=== PATIENT | female | born 1945 | race Two or more races ===

== ENCOUNTER 2018-05-12 11:04 | Inpatient (IN) | payer MEDICAID ==
[~2018-05-12] VITALS: Ht 152.4 cm; Wt 63.0 kg
[~2018-05-12 11:04] MED LIST: FERR325T23 PO; NEPVIT PO; PEPJ2 IV
[2018-05-12 13:23] LABS: HEMATOCRIT. 42.4 % (36.0-48.0); HEMOGLOBIN. 14.4 g/dL (12.0-16.0); MEAN CORPUSCULAR HEMOGLOBIN 29.1 pg (28.0-32.0); MEAN CORPUSCULAR VOLUME 85.5 fL (81.0-99.0); MEAN PLATELET VOLUME 10.3 fl (7.4-10.4); PLATELET 303 x1000/uL (130-400); RED BLOOD CELL COUNT 4.96 mill/uL (4.2-5.4)
[2018-05-12 13:24] LABS: CHLORIDE 97 mEq/L (98-107)
[2018-05-12 13:25] LABS: PROTHROMBIN TIME 10.3 sec (9.1-11.1)
[2018-05-12 13:55] LABS: PLATELET ESTIMATE NORMAL
[2018-05-12 14:04] LABS: CLARITY URINE CLEAR (CLEAR); COLOR URINE YELLOW (YELLOW); KETONES URINE TRACE (NEGATIVE); LEUKOCYTE ESTERASE URINE NEGATIVE (NEGATIVE); NITRITE URINE NEGATIVE (NEGATIVE); OCCULT BLOOD URINE TRACE (NEGATIVE); PROTEIN URINE 3+ (NEGATIVE); SPECIFIC GRAVITY URINE 1.017 (1.005-1.030); UROBILINOGEN URINE 0.2 E.U./dL (0.2-1.0)
[2018-05-12] MEDS ORDERED: PIPERACILLIN/TAZOBACTAM 3.375GM/50ML PREMIX IV ONE (14:15)
[2018-05-12] MEDS ORDERED: MAGNESIUM SULFATE 2 GM in DEXTROSE 5% WATER 50 ML IV NR (14:20)
[2018-05-12] MEDS ORDERED: IOHEXOL-300 100 ML BOTTLE ONE (14:26)
[2018-05-12] MEDS ORDERED: HYDRALAZINE 20MG/ML VIAL IV ONE (16:45)
[2018-05-12] MEDS ORDERED: BLOOD SUGAR DIAGNOSTIC STRIP TEST SCH (17:00)
[2018-05-12] MEDS ORDERED: ONDANSETRON HCL 4MG/2ML VIAL IV PRN (17:00)
[2018-05-12] MEDS ORDERED: DEXTROSE 50% WATER 50ML SYRINGE IV PRN (17:00)
[2018-05-12] MEDS ORDERED: HYDRALAZINE 20MG/ML VIAL IV PRN (17:00)
[2018-05-12] MEDS ORDERED: MORPHINE SULFATE 4 MG/ML CPJ (NOT FOR IM USE) IV PRN (17:00)
[2018-05-12 18:00] VITALS: BP 144/59
[2018-05-12] MEDS ORDERED: INSULIN LISPRO 100 UNITS/ML SUBCUT SCH (18:18)
[2018-05-12] MEDS ORDERED: LABETALOL 5MG/ML SYR 20 MG/4 ML SYRINGE IV NR (19:00)
[2018-05-12] MEDS ORDERED: LEVOFLOXACIN 500MG PREMIX 100 ML IV SCH (20:00)
[2018-05-12 20:12] VITALS: BP 152/75
[2018-05-12] MEDS: BLOOD SUGAR DIAGNOSTIC STRIP TEST SCH (21:00)
[2018-05-12] MEDS: SODIUM CHLORIDE 0.45% 1,000 ML IV SCH (22:19)
[2018-05-12] MEDS: INSULIN LISPRO 100 UNITS/ML SUBCUT SCH (22:21)
[2018-05-13] VITALS: BP 160/76
[2018-05-13] MEDS: SODIUM CHLORIDE 0.45% 1,000 ML IV SCH ×3 (03:00→15:42)
[2018-05-13 04:00] VITALS: BP 143/56
[2018-05-13 06:55] LABS: BASOPHILS % 0.3 % (0.0-2.0); EOSINOPHILS % 0.7 % (0.0-5.0); HEMOGLOBIN. 14.8 g/dL (12.0-16.0); LYMPHOCYTES % 12.1 % (20.0-50.0); MEAN CORPUSCULAR HEMOGLOBIN 29.7 pg (28.0-32.0); MEAN CORPUSCULAR VOLUME 86.6 fL (81.0-99.0); MEAN PLATELET VOLUME 10.4 fl (7.4-10.4); MONOCYTES % 9.5 % (2.0-8.0); NEUTROPHILS % 77.4 % (40.0-76.0); PLATELET 297 x1000/uL (130-400); RED BLOOD CELL COUNT 4.96 mill/uL (4.2-5.4)
[2018-05-13] MEDS: BLOOD SUGAR DIAGNOSTIC STRIP TEST SCH ×4 (06:57→20:52)
[2018-05-13 07:13] LABS: CHLORIDE 94 mEq/L (98-107)
[2018-05-13 07:51] VITALS: BP 149/77
[2018-05-13] MEDS ORDERED: ATOR10TA69 MT (08:04)
[2018-05-13] MEDS ORDERED: ASPI-1158 MT (08:04)
[2018-05-13] MEDS ORDERED: ISOS30TA6 MT (08:04)
[2018-05-13] MEDS ORDERED: LINA5TAB MT (08:04)
[2018-05-13] MEDS ORDERED: CARV6.2548 MT (08:04)
[2018-05-13] MEDS ORDERED: NEPVIT MT (08:04)
[2018-05-13] MEDS: INSULIN LISPRO 100 UNITS/ML SUBCUT SCH ×4 (08:14→20:52)
[2018-05-13] MEDS: AMLODIPINE 10MG TABLET PO SCH (11:46)
[2018-05-13 12:00] VITALS: BP 166/71
[2018-05-13] MEDS ORDERED: INSULIN GLARGINE UD 100 UNITS/ML SYR SUBCUT NR (12:30)
[2018-05-13] MEDS: LEVOFLOXACIN 250MG PREMIX 50 ML IV SCH (15:42)
[2018-05-13 20:00] VITALS: BP 129/59
[2018-05-14] VITALS (7 sets, daily range): BP systolic 101–128; BP diastolic 40–56
[2018-05-14] MEDS: SODIUM CHLORIDE 0.45% 1,000 ML IV SCH ×3 (01:21→22:25)
[2018-05-14] MEDS: BLOOD SUGAR DIAGNOSTIC STRIP TEST SCH ×4 (06:22→21:00)
[2018-05-14 06:49] LABS: BASOPHILS % 0.2 % (0.0-2.0); EOSINOPHILS % 0.5 % (0.0-5.0); HEMATOCRIT. 35.2 % (36.0-48.0); HEMOGLOBIN. 12.2 g/dL (12.0-16.0); LYMPHOCYTES % 12.6 % (20.0-50.0); MEAN CORPUSCULAR HEMOGLOBIN 30.1 pg (28.0-32.0); MEAN CORPUSCULAR VOLUME 87.2 fL (81.0-99.0); MONOCYTES % 10.9 % (2.0-8.0); NEUTROPHILS % 75.8 % (40.0-76.0); PLATELET 229 x1000/uL (130-400); RED BLOOD CELL COUNT 4.04 mill/uL (4.2-5.4)
[2018-05-14 07:09] LABS: CHLORIDE 99 mEq/L (98-107)
[2018-05-14] MEDS: AMLODIPINE 10MG TABLET PO SCH (09:58)
[2018-05-14] MEDS: INSULIN GLARGINE UD 100 UNITS/ML SYR SUBCUT SCH (10:00)
[2018-05-14] MEDS: INSULIN LISPRO 100 UNITS/ML SUBCUT SCH ×4 (10:01→21:00)
[2018-05-14] MEDS ORDERED: HYDROCODONE/ACETAMINOPHEN 5/325MG TABLET PO PRN (12:45)
[2018-05-14] MEDS: LEVOFLOXACIN 250MG PREMIX 50 ML IV SCH (14:50)
[2018-05-14] MEDS: HYDROCODONE/ACETAMINOPHEN 5/325MG TABLET PO PRN ×2 (14:52→22:24)
[2018-05-14] MEDS: POTASSIUM CHLORIDE 20MEQ TABLET SR PO NR ×2 (17:40→17:41)
[2018-05-15] VITALS: BP 112/51
[2018-05-15 04:00] VITALS: BP 136/50
[2018-05-15] MEDS: SODIUM CHLORIDE 0.45% 1,000 ML IV SCH (05:00)
[2018-05-15] MEDS: INSULIN LISPRO 100 UNITS/ML SUBCUT SCH ×4 (06:38→20:54)
[2018-05-15] MEDS: BLOOD SUGAR DIAGNOSTIC STRIP TEST SCH ×4 (06:38→20:54)
[2018-05-15 07:28] LABS: BASOPHILS % 0.4 % (0.0-2.0); EOSINOPHILS % 2.5 % (0.0-5.0); HEMOGLOBIN. 11.5 g/dL (12.0-16.0); LYMPHOCYTES % 18.5 % (20.0-50.0); MEAN CORPUSCULAR HEMOGLOBIN 29.8 pg (28.0-32.0); MEAN CORPUSCULAR VOLUME 87.7 fL (81.0-99.0); MONOCYTES % 10.3 % (2.0-8.0); NEUTROPHILS % 68.3 % (40.0-76.0); RED BLOOD CELL COUNT 3.87 mill/uL (4.2-5.4); RED CELL DISTRIBUTION WIDTH 13.9 % (11.6-14.6)
[2018-05-15 08:00] VITALS: BP 119/48
[2018-05-15 08:10] LABS: CHLORIDE 107 mEq/L (98-107)
[2018-05-15] MEDS: AMLODIPINE 10MG TABLET PO SCH (09:18)
[2018-05-15] MEDS: INSULIN GLARGINE UD 100 UNITS/ML SYR SUBCUT SCH (09:33)
[2018-05-15] MEDS ORDERED: MORPHINE SULFATE 4 MG/ML CPJ (NOT FOR IM USE) IV PRN (10:15)
[2018-05-15] MEDS ORDERED: HYDROCODONE/ACETAMINOPHEN 5/325MG TABLET PO PRN ×2 (10:15)
[2018-05-15] MEDS ORDERED: BUPIVACAINE HCL 0.5% (5MG/ML) 50ML ONE (10:35)
[2018-05-15] MEDS ORDERED: SKIN ADHESIVE 0.7 GM EA TOP ONE (10:35)
[2018-05-15] MEDS ORDERED: FENTANYL CITRATE/PF 50MCG/ML 2ML VIAL ONE (11:03)
[2018-05-15] MEDS ORDERED: PROPOFOL 200MG/20ML VIAL IV ONE (11:03)
[2018-05-15] MEDS ORDERED: MIDAZOLAM HCL 2 MG/2 ML VIAL ONE (11:03)
[2018-05-15] MEDS ORDERED: ROCURONIUM BROMIDE 10MG/ML VIAL 5ML IV ONE (11:03)
[2018-05-15] MEDS ORDERED: LIDOCAINE HCL/PF 1% 10 MG/ML 5ML VIAL ONE (11:03)
[2018-05-15] MEDS ORDERED: SUCCINYLCHOLINE CHLORIDE 200MG/10ML VIAL IV ONE (11:03)
[2018-05-15] MEDS ORDERED: PHENYLEPHRINE HCL 10 MG/ML 1ML (IV VIAL) IV ONE (11:22)
[2018-05-15] MEDS ORDERED: EPHEDRINE SULFATE 50MG/ML VIAL ONE (11:26)
[2018-05-15] MEDS ORDERED: GLYCOPYRROLATE 0.2 MG/ML 2ML VIAL ONE (11:33)
[2018-05-15] MEDS ORDERED: ONDANSETRON HCL 4MG/2ML VIAL ONE (12:11)
[2018-05-15] MEDS ORDERED: METOCLOPRAMIDE HCL 10MG/2ML VIAL ONE (12:11)
[2018-05-15] MEDS ORDERED: SODIUM CHLORIDE 0.9% 1,000 ML IV ONE (12:28)
[2018-05-15] MEDS ORDERED: MEPERIDINE HCL/PF 25MG/ML CPJ IV PRN (12:30)
[2018-05-15] MEDS ORDERED: ONDANSETRON HCL 4MG/2ML VIAL IV PRN (12:30)
[2018-05-15] MEDS: HYDROMORPHONE HCL/PF 2MG/ML CPJ IV PRN ×4 (13:25→13:52)
[2018-05-15 13:52] LABS: MEAN PLATELET VOLUME 10.8 fl (7.4-10.4); PLATELET 179 x1000/uL (130-400)
[2018-05-15] MEDS ORDERED: LEVOFLOXACIN 250MG TABLET PO SCH (14:00)
[2018-05-15 16:00] VITALS: BP 96/56
[2018-05-15] MEDS: DEXT 5%/0.45% NACL KCL 20MEQ/L 1,000 ML IV SCH (18:04)
[2018-05-15] MEDS: MORPHINE SULFATE 4 MG/ML CPJ (NOT FOR IM USE) IV PRN (18:20)
[2018-05-15 20:15] VITALS: BP 138/52
[2018-05-15] MEDS: ACETAMINOPHEN 325MG TABLET PO PRN (20:53)
[2018-05-16] VITALS: BP 140/44
[2018-05-16] MEDS ORDERED: ONDANSETRON HCL 4MG/2ML VIAL IV PRN (01:00)
[2018-05-16] MEDS: ONDANSETRON 4MG ODT PO PRN ×2 (01:01→20:07)
[2018-05-16] MEDS: MORPHINE SULFATE 4 MG/ML CPJ (NOT FOR IM USE) IV PRN ×4 (01:01→20:07)
[2018-05-16 04:00] VITALS: BP 148/59
[2018-05-16] MEDS: DEXT 5%/0.45% NACL KCL 20MEQ/L 1,000 ML IV SCH ×3 (04:21→18:45)
[2018-05-16] MEDS: BLOOD SUGAR DIAGNOSTIC STRIP TEST SCH ×4 (06:22→20:47)
[2018-05-16 08:00] VITALS: BP 156/61
[2018-05-16] MEDS: AMLODIPINE 10MG TABLET PO SCH (08:53)
[2018-05-16] MEDS: INSULIN LISPRO 100 UNITS/ML SUBCUT SCH ×4 (09:02→20:47)
[2018-05-16 09:30] LABS: HEMATOCRIT. 31.8 % (36.0-48.0); HEMOGLOBIN. 10.5 g/dL (12.0-16.0); MEAN CORPUSCULAR HEMOGLOBIN 29.1 pg (28.0-32.0); MEAN CORPUSCULAR VOLUME 88.5 fL (81.0-99.0); MEAN PLATELET VOLUME 9.4 fl (7.4-10.4); PLATELET 263 x1000/uL (130-400); RED BLOOD CELL COUNT 3.59 mill/uL (4.2-5.4); RED CELL DISTRIBUTION WIDTH 13.9 % (11.6-14.6)
[2018-05-16] MEDS: INSULIN GLARGINE UD 100 UNITS/ML SYR SUBCUT SCH (10:17)
[2018-05-16] MEDS: METOCLOPRAMIDE HCL 10MG/2ML VIAL IV SCH ×2 (11:56→18:45)
[2018-05-16 12:00] VITALS: BP 131/68
[2018-05-16] MEDS: LEVOFLOXACIN 250MG PREMIX 50 ML IV SCH (13:47)
[2018-05-16] MEDS: PANTOPRAZOLE SODIUM 40 MG/VIAL IV SCH ×2 (13:55→20:06)
[2018-05-16 14:22] LABS: PLATELET ESTIMATE NORMAL
[2018-05-16 16:00] VITALS: BP 159/62
[2018-05-16] MEDS: ACETAMINOPHEN 325MG TABLET PO PRN (17:13)
[2018-05-16] MEDS ORDERED: ACETAMINOPHEN 650MG SUPP PR SCH (19:30)
[2018-05-16 20:00] VITALS: BP 149/41
[2018-05-16 20:57] LABS: HEMOGLOBIN 10.5 g/dL (12.0-16.0)
[2018-05-17] VITALS: BP 118/55
[2018-05-17] MEDS: DEXT 5%/0.45% NACL KCL 20MEQ/L 1,000 ML IV SCH ×3 (02:11→18:13)
[2018-05-17] MEDS: MORPHINE SULFATE 4 MG/ML CPJ (NOT FOR IM USE) IV PRN (02:13)
[2018-05-17] MEDS: METOCLOPRAMIDE HCL 10MG/2ML VIAL IV SCH ×3 (03:38→21:27)
[2018-05-17 04:00] VITALS: BP 124/50
[2018-05-17] MEDS: ONDANSETRON 4MG ODT PO PRN (06:38)
[2018-05-17] MEDS: BLOOD SUGAR DIAGNOSTIC STRIP TEST SCH ×4 (06:38→21:52)
[2018-05-17 07:04] LABS: HEMATOCRIT 30.3 % (36.0-48.0)
[2018-05-17] MEDS: INSULIN LISPRO 100 UNITS/ML SUBCUT SCH ×4 (07:50→21:00)
[2018-05-17 08:00] VITALS: BP 127/55
[2018-05-17] MEDS: PANTOPRAZOLE SODIUM 40 MG/VIAL IV SCH ×2 (09:48→21:27)
[2018-05-17] MEDS: AMLODIPINE 10MG TABLET PO SCH (09:49)
[2018-05-17] MEDS: INSULIN GLARGINE UD 100 UNITS/ML SYR SUBCUT SCH (10:00)
[2018-05-17 12:00] VITALS: BP 118/47
[2018-05-17] MEDS: SIMETHICONE 80MG TABLET CHEW PO SCH ×3 (15:40→21:27)
[2018-05-17] MEDS: LEVOFLOXACIN 250MG PREMIX 50 ML IV SCH (15:40)
[2018-05-17 16:00] VITALS: BP 152/50
[2018-05-17] MEDS: ACETAMINOPHEN 325MG TABLET PO PRN (16:58)
[2018-05-17 17:56] LABS: HEMATOCRIT 29.9 % (36.0-48.0); HEMOGLOBIN 10.1 g/dL (12.0-16.0)
[2018-05-17 20:06] VITALS: BP 114/54
[2018-05-17] MEDS ORDERED: IPRATROPIUM/ALBUTEROL 0.5-3(2.5)MG/3ML NEB HHN PRN (21:00)
[2018-05-18] VITALS: BP 116/58
[2018-05-18 04:00] VITALS: BP 146/60
[2018-05-18 05:09] LABS: CHLORIDE 105 mEq/L (98-107)
[2018-05-18] MEDS: METOCLOPRAMIDE HCL 10MG/2ML VIAL IV SCH ×3 (05:30→21:34)
[2018-05-18] MEDS: DEXT 5%/0.45% NACL KCL 20MEQ/L 1,000 ML IV SCH (05:33)
[2018-05-18 05:37] LABS: HEMATOCRIT. 28.3 % (36.0-48.0); HEMOGLOBIN. 9.6 g/dL (12.0-16.0); MEAN CORPUSCULAR HEMOGLOBIN 29.7 pg (28.0-32.0); MEAN CORPUSCULAR VOLUME 87.5 fL (81.0-99.0); PLATELET 222 x1000/uL (130-400); RED BLOOD CELL COUNT 3.23 mill/uL (4.2-5.4); RED CELL DISTRIBUTION WIDTH 13.8 % (11.6-14.6)
[2018-05-18] MEDS: BLOOD SUGAR DIAGNOSTIC STRIP TEST SCH ×4 (06:13→21:25)
[2018-05-18 08:00] VITALS: BP 156/67
[2018-05-18] MEDS: SIMETHICONE 80MG TABLET CHEW PO SCH ×4 (09:38→21:34)
[2018-05-18] MEDS: AMLODIPINE 10MG TABLET PO SCH (09:40)
[2018-05-18] MEDS: PANTOPRAZOLE SODIUM 40 MG/VIAL IV SCH ×2 (09:43→21:34)
[2018-05-18] MEDS: INSULIN LISPRO 100 UNITS/ML SUBCUT SCH ×4 (09:57→21:00)
[2018-05-18 12:00] VITALS: BP 156/51
[2018-05-18] MEDS: INSULIN GLARGINE UD 100 UNITS/ML SYR SUBCUT SCH (12:32)
[2018-05-18] MEDS ORDERED: GUAIFENESIN 200MG/10ML SUGAR FREE UDC PO PRN (14:45)
[2018-05-18] MEDS: LEVOFLOXACIN 250MG PREMIX 50 ML IV SCH (15:20)
[2018-05-18 16:00] VITALS: BP 130/47
[2018-05-18] MEDS: IPRATROPIUM/ALBUTEROL 0.5-3(2.5)MG/3ML NEB HHN SCH ×2 (16:39→20:58)
[2018-05-18 17:14] LABS: HEMATOCRIT 28.7 % (36.0-48.0); HEMOGLOBIN 9.6 g/dL (12.0-16.0)
[2018-05-18] MEDS: ACETAMINOPHEN 325MG TABLET PO PRN (17:22)
[2018-05-18 20:00] VITALS: BP 135/55
[2018-05-19 00:02] VITALS: BP 128/57
[2018-05-19] MEDS: IPRATROPIUM/ALBUTEROL 0.5-3(2.5)MG/3ML NEB HHN SCH ×6 (02:24→21:06)
[2018-05-19] MEDS: ONDANSETRON 4MG ODT PO PRN (03:14)
[2018-05-19 04:00] VITALS: BP 137/55
[2018-05-19] MEDS: BLOOD SUGAR DIAGNOSTIC STRIP TEST SCH ×4 (05:31→21:05)
[2018-05-19] MEDS: DEXT 5%/0.45% NACL KCL 20MEQ/L 1,000 ML IV SCH ×2 (05:34→16:34)
[2018-05-19] MEDS: METOCLOPRAMIDE HCL 10MG/2ML VIAL IV SCH ×3 (05:34→21:41)
[2018-05-19 06:02] LABS: HEMATOCRIT. 26.9 % (36.0-48.0); HEMOGLOBIN. 9.2 g/dL (12.0-16.0); MEAN CORPUSCULAR HEMOGLOBIN 29.4 pg (28.0-32.0); MEAN CORPUSCULAR VOLUME 86.3 fL (81.0-99.0); MEAN PLATELET VOLUME 8.7 fl (7.4-10.4); PLATELET 252 x1000/uL (130-400); RED BLOOD CELL COUNT 3.12 mill/uL (4.2-5.4); RED CELL DISTRIBUTION WIDTH 13.8 % (11.6-14.6)
[2018-05-19 08:00] VITALS: BP 128/70
[2018-05-19] MEDS: PANTOPRAZOLE SODIUM 40 MG/VIAL IV SCH ×2 (09:20→21:40)
[2018-05-19] MEDS: SIMETHICONE 80MG TABLET CHEW PO SCH ×4 (09:20→21:41)
[2018-05-19] MEDS: AMLODIPINE 10MG TABLET PO SCH (09:21)
[2018-05-19] MEDS: INSULIN LISPRO 100 UNITS/ML SUBCUT SCH ×4 (09:28→21:00)
[2018-05-19 09:48] LABS: PLATELET ESTIMATE NORMAL
[2018-05-19] MEDS: INSULIN GLARGINE UD 100 UNITS/ML SYR SUBCUT SCH (10:30)
[2018-05-19 12:00] VITALS: BP 132/51
[2018-05-19] MEDS: LEVOFLOXACIN 250MG PREMIX 50 ML IV SCH (13:46)
[2018-05-19 14:29] LABS: PLATELET ESTIMATE NORMAL
[2018-05-19 16:00] VITALS: BP 147/45
[2018-05-19 20:09] VITALS: BP 157/61
[2018-05-19] MEDS: ACETAMINOPHEN 325MG TABLET PO PRN (21:41)
[2018-05-20] VITALS (19 sets, daily range): BP systolic 110–158; BP diastolic 43–70
[2018-05-20] MEDS: IPRATROPIUM/ALBUTEROL 0.5-3(2.5)MG/3ML NEB HHN SCH ×6 (01:00→21:57)
[2018-05-20] MEDS: DEXT 5%/0.45% NACL KCL 20MEQ/L 1,000 ML IV SCH ×2 (03:23→15:30)
[2018-05-20] MEDS: BLOOD SUGAR DIAGNOSTIC STRIP TEST SCH ×4 (05:59→21:28)
[2018-05-20] MEDS: METOCLOPRAMIDE HCL 10MG/2ML VIAL IV SCH ×2 (06:16→18:33)
[2018-05-20] MEDS: INSULIN LISPRO 100 UNITS/ML SUBCUT SCH ×4 (07:29→21:29)
[2018-05-20] MEDS: SIMETHICONE 80MG TABLET CHEW PO SCH ×4 (08:56→21:43)
[2018-05-20] MEDS: AMLODIPINE 10MG TABLET PO SCH (08:57)
[2018-05-20] MEDS: PANTOPRAZOLE SODIUM 40 MG/VIAL IV SCH ×2 (08:57→21:16)
[2018-05-20] MEDS: DIATR MEGLU/DIATRIZOATE SOLN 30ML PO SCH ×2 (10:13→11:03)
[2018-05-20] MEDS: INSULIN GLARGINE UD 100 UNITS/ML SYR SUBCUT SCH (10:24)
[2018-05-20] MEDS ORDERED: FENTANYL CITRATE/PF 50MCG/ML 2ML VIAL ONE (12:52)
[2018-05-20] MEDS ORDERED: SODIUM BICARBONATE 4% (2.4MEQ) 5ML VIAL IV ONE (12:54)
[2018-05-20] MEDS ORDERED: LIDOCAINE HCL/PF 1% 10 MG/ML 30ML VIAL ONE (12:54)
[2018-05-20] MEDS ORDERED: FENTANYL CITRATE/PF 50MCG/ML 2ML VIAL IV ONE (14:15)
[2018-05-20] MEDS ORDERED: BISACODYL 5MG TABLET PO NR (15:00)
[2018-05-20] MEDS ORDERED: BISACODYL 5MG TABLET PO PRN (15:00)
[2018-05-20] MEDS ORDERED: BISACODYL 10MG SUPP PR PRN (15:00)
[2018-05-20] MEDS: DOCUSATE SODIUM 250MG CAPSULE PO SCH (15:30)
[2018-05-20] MEDS: LEVOFLOXACIN 250MG PREMIX 50 ML IV SCH (15:30)
[2018-05-20] MEDS: METRONIDAZOLE 500 MG PREMIX 100 ML IV SCH (18:33)
[2018-05-21 00:08] VITALS: BP 129/53
[2018-05-21] MEDS: METOCLOPRAMIDE HCL 10MG/2ML VIAL IV SCH ×4 (00:09→20:15)
[2018-05-21] MEDS: IPRATROPIUM/ALBUTEROL 0.5-3(2.5)MG/3ML NEB HHN SCH ×6 (01:13→21:34)
[2018-05-21] MEDS: METRONIDAZOLE 500 MG PREMIX 100 ML IV SCH ×3 (02:59→18:02)
[2018-05-21 04:00] VITALS: BP 145/48
[2018-05-21 05:28] LABS: HEMATOCRIT. 28.4 % (36.0-48.0); HEMOGLOBIN. 9.6 g/dL (12.0-16.0); MEAN CORPUSCULAR HEMOGLOBIN 29.3 pg (28.0-32.0); MEAN CORPUSCULAR VOLUME 86.9 fL (81.0-99.0); MEAN PLATELET VOLUME 8.5 fl (7.4-10.4); PLATELET 322 x1000/uL (130-400); RED BLOOD CELL COUNT 3.27 mill/uL (4.2-5.4); RED CELL DISTRIBUTION WIDTH 14.1 % (11.6-14.6)
[2018-05-21] MEDS: DEXT 5%/0.45% NACL KCL 20MEQ/L 1,000 ML IV SCH ×4 (05:36→19:03)
[2018-05-21] MEDS: BLOOD SUGAR DIAGNOSTIC STRIP TEST SCH ×4 (06:31→20:39)
[2018-05-21 08:01] VITALS: BP 147/59
[2018-05-21] MEDS ORDERED: HYDROCODONE/ACETAMINOPHEN 5/325MG TABLET PO PRN (09:00)
[2018-05-21] MEDS: DOCUSATE SODIUM 250MG CAPSULE PO SCH (09:29)
[2018-05-21] MEDS: SIMETHICONE 80MG TABLET CHEW PO SCH ×4 (09:29→20:16)
[2018-05-21] MEDS: AMLODIPINE 10MG TABLET PO SCH (09:30)
[2018-05-21] MEDS: INSULIN LISPRO 100 UNITS/ML SUBCUT SCH ×4 (09:31→20:43)
[2018-05-21] MEDS: PANTOPRAZOLE SODIUM 40 MG/VIAL IV SCH ×2 (09:49→20:14)
[2018-05-21 11:48] VITALS: BP 133/55
[2018-05-21] MEDS ORDERED: NA PHOS,M-B/NA PHOS,DI-BA ENEMA 118ML PR SCH (13:15)
[2018-05-21] MEDS: MORPHINE SULFATE 4 MG/ML CPJ (NOT FOR IM USE) IV PRN ×2 (14:22→20:18)
[2018-05-21] MEDS: LEVOFLOXACIN 250MG PREMIX 50 ML IV SCH (14:24)
[2018-05-21 14:43] LABS: BG BASE EXCESS -6.4 mmol/L (-2.0-2.0); BG CARBOXYHEMOGLOBIN 0.5 % (0.5-1.5); BG DEOXYHEMOGLOBIN 8.6 % (0.0-5.0); BG FRACTION INSPIRED OXYGEN 21; BG HCO3 ACT 17.4 mmol/L (22.0-26.0); BG METHEMOGLOBIN 0.3 % (0.0-1.5); BG OXYGEN SATURATION 91.3 % (92.0-98.5); BG OXYHEMOGLOBIN 90.6 % (94.0-97.0); BG PCO2 28.4 mmHg (35.0-45.0); BG PH 7.405 (7.350-7.450); BG PO2 59.2 mmHg (75.0-100.0); BG SAMPLE SITE RIGHT RADIAL; BG TOTAL HEMOGLOBIN 8.7 g/dL (12.0-18.0); BG VENT MODE ROOM AIR
[2018-05-21 15:32] VITALS: BP 138/50
[2018-05-21] MEDS ORDERED: NA PHOS,M-B/NA PHOS,DI-BA ENEMA 118ML PR PRN (15:45)
[2018-05-21] MEDS ORDERED: FUROSEMIDE 40MG/4ML VIAL IVP NR (18:15)
[2018-05-21] MEDS: CEFEPIME 2,000 MG in DEXT 5% WATER 100 ML IV SCH (19:04)
[2018-05-21 19:59] VITALS: BP 137/81
[2018-05-21 19:59] LABS: PLATELET ESTIMATE NORMAL
[2018-05-22 00:02] VITALS: BP 114/47
[2018-05-22] MEDS: IPRATROPIUM/ALBUTEROL 0.5-3(2.5)MG/3ML NEB HHN SCH ×4 (00:40→20:45)
[2018-05-22] MEDS: METOCLOPRAMIDE HCL 10MG/2ML VIAL IV SCH ×4 (01:13→17:41)
[2018-05-22] MEDS: METRONIDAZOLE 500 MG PREMIX 100 ML IV SCH ×2 (02:03→10:17)
[2018-05-22 04:16] VITALS: BP 128/57
[2018-05-22] MEDS: DEXT 5%/0.45% NACL KCL 20MEQ/L 1,000 ML IV SCH (06:25)
[2018-05-22] MEDS: BLOOD SUGAR DIAGNOSTIC STRIP TEST SCH ×4 (06:28→21:00)
[2018-05-22] MEDS: INSULIN LISPRO 100 UNITS/ML SUBCUT SCH ×4 (06:28→21:00)
[2018-05-22] MEDS: CEFEPIME 2,000 MG in DEXT 5% WATER 100 ML IV SCH (06:30)
[2018-05-22 08:07] VITALS: BP 130/41
[2018-05-22 08:15] LABS: HEMATOCRIT. 25.6 % (36.0-48.0); HEMOGLOBIN. 8.6 g/dL (12.0-16.0); MEAN CORPUSCULAR HEMOGLOBIN 29.5 pg (28.0-32.0); MEAN CORPUSCULAR VOLUME 87.6 fL (81.0-99.0); MEAN PLATELET VOLUME 8.5 fl (7.4-10.4); PLATELET 295 x1000/uL (130-400); RED BLOOD CELL COUNT 2.92 mill/uL (4.2-5.4); RED CELL DISTRIBUTION WIDTH 14.2 % (11.6-14.6)
[2018-05-22] MEDS: DOCUSATE SODIUM 250MG CAPSULE PO SCH (10:15)
[2018-05-22] MEDS: AMLODIPINE 10MG TABLET PO SCH (10:15)
[2018-05-22] MEDS: SIMETHICONE 80MG TABLET CHEW PO SCH ×4 (10:15→22:24)
[2018-05-22] MEDS: PANTOPRAZOLE SODIUM 40 MG/VIAL IV SCH (10:15)
[2018-05-22] MEDS: FUROSEMIDE 40MG/4ML VIAL IVP SCH (10:16)
[2018-05-22 12:58] VITALS: BP 141/55
[2018-05-22 13:54] LABS: PLATELET ESTIMATE NORMAL
[2018-05-22] MEDS: MEROPENEM 1,000 MG in SODIUM CHLORIDE 0.9% 100 ML IV SCH (15:05)
[2018-05-22 17:39] VITALS: BP 118/29
[2018-05-22 20:33] VITALS: BP 130/57
[2018-05-22] MEDS: MORPHINE SULFATE 4 MG/ML CPJ (NOT FOR IM USE) IV PRN (22:26)
[2018-05-23] VITALS: BP 138/49
[2018-05-23] MEDS: IPRATROPIUM/ALBUTEROL 0.5-3(2.5)MG/3ML NEB HHN SCH ×6 (00:32→20:39)
[2018-05-23] MEDS: MEROPENEM 1,000 MG in SODIUM CHLORIDE 0.9% 100 ML IV SCH ×2 (02:08→14:02)
[2018-05-23] MEDS: METOCLOPRAMIDE HCL 10MG/2ML VIAL IV SCH ×4 (02:08→19:10)
[2018-05-23 04:00] VITALS: BP 153/60
[2018-05-23] MEDS: BLOOD SUGAR DIAGNOSTIC STRIP TEST SCH ×4 (07:01→21:47)
[2018-05-23 07:39] LABS: HEMATOCRIT. 26.4 % (36.0-48.0); MEAN CORPUSCULAR HEMOGLOBIN 29.1 pg (28.0-32.0); MEAN CORPUSCULAR VOLUME 85.9 fL (81.0-99.0); MEAN PLATELET VOLUME 8.4 fl (7.4-10.4); PLATELET 335 x1000/uL (130-400); RED BLOOD CELL COUNT 3.08 mill/uL (4.2-5.4); RED CELL DISTRIBUTION WIDTH 14.4 % (11.6-14.6)
[2018-05-23] MEDS: INSULIN LISPRO 100 UNITS/ML SUBCUT SCH ×4 (07:50→21:00)
[2018-05-23 08:00] VITALS: BP 123/39
[2018-05-23] MEDS: SIMETHICONE 80MG TABLET CHEW PO SCH ×4 (09:24→21:47)
[2018-05-23] MEDS: DOCUSATE SODIUM 250MG CAPSULE PO SCH (09:24)
[2018-05-23] MEDS: AMLODIPINE 10MG TABLET PO SCH (09:24)
[2018-05-23] MEDS: DEXT 5%/0.45% NACL KCL 20MEQ/L 1,000 ML IV SCH (09:28)
[2018-05-23] MEDS: ONDANSETRON 4MG ODT PO PRN (09:49)
[2018-05-23] MEDS: MORPHINE SULFATE 4 MG/ML CPJ (NOT FOR IM USE) IV PRN (09:53)
[2018-05-23] MEDS: PANTOPRAZOLE SODIUM 40 MG/VIAL IV SCH (09:54)
[2018-05-23] MEDS ORDERED: IOHEXOL-300 50 ML BOTTLE IV ONE (10:08)
[2018-05-23 12:00] VITALS: BP 135/58
[2018-05-23] MEDS: FUROSEMIDE 40MG/4ML VIAL IVP SCH (12:21)
[2018-05-23 13:34] LABS: PLATELET ESTIMATE NORMAL
[2018-05-23 16:00] VITALS: BP 110/51
[2018-05-23] MEDS: PIPERACILLIN/TAZ 3.375G PREMIX 50 ML IV SCH (19:10)
[2018-05-24] VITALS: BP 125/54
[2018-05-24] MEDS: IPRATROPIUM/ALBUTEROL 0.5-3(2.5)MG/3ML NEB HHN SCH ×4 (01:13→20:03)
[2018-05-24] MEDS: METOCLOPRAMIDE HCL 10MG/2ML VIAL IV SCH ×4 (01:39→17:23)
[2018-05-24] MEDS: PIPERACILLIN/TAZ 3.375G PREMIX 50 ML IV SCH ×2 (01:39→10:36)
[2018-05-24] MEDS: MEROPENEM 1,000 MG in SODIUM CHLORIDE 0.9% 100 ML IV SCH ×2 (01:40→17:23)
[2018-05-24] MEDS: DEXT 5%/0.45% NACL KCL 20MEQ/L 1,000 ML IV SCH (01:41)
[2018-05-24 04:00] VITALS: BP 134/62
[2018-05-24 06:59] LABS: HEMATOCRIT. 28.4 % (36.0-48.0); HEMOGLOBIN. 9.5 g/dL (12.0-16.0); INR 1.1; MEAN CORPUSCULAR HEMOGLOBIN 28.8 pg (28.0-32.0); MEAN CORPUSCULAR VOLUME 85.8 fL (81.0-99.0); MEAN PLATELET VOLUME 8.5 fl (7.4-10.4); PLATELET 373 x1000/uL (130-400); PROTHROMBIN TIME 10.7 sec (9.1-11.1); RED BLOOD CELL COUNT 3.31 mill/uL (4.2-5.4); RED CELL DISTRIBUTION WIDTH 14.5 % (11.6-14.6)
[2018-05-24] MEDS: BLOOD SUGAR DIAGNOSTIC STRIP TEST SCH ×4 (07:04→21:00)
[2018-05-24] MEDS: INSULIN LISPRO 100 UNITS/ML SUBCUT SCH ×4 (07:30→21:00)
[2018-05-24 07:56] VITALS: BP 139/58
[2018-05-24] MEDS: SIMETHICONE 80MG TABLET CHEW PO SCH ×4 (08:31→21:41)
[2018-05-24] MEDS: AMLODIPINE 10MG TABLET PO SCH (08:31)
[2018-05-24] MEDS: PANTOPRAZOLE SODIUM 40 MG/VIAL IV SCH (08:31)
[2018-05-24] MEDS: FUROSEMIDE 40MG/4ML VIAL IVP SCH (08:32)
[2018-05-24] MEDS: DOCUSATE SODIUM 250MG CAPSULE PO SCH (08:32)
[2018-05-24 09:42] LABS: CHLORIDE 98 mEq/L (98-107)
[2018-05-24 11:07] LABS: PLATELET ESTIMATE NORMAL
[2018-05-24] MEDS ORDERED: SIMETHICONE 40 MG/0.6 ML 30ML ONE (11:39)
[2018-05-24] MEDS ORDERED: IOHEXOL-300 100 ML BOTTLE ONE (11:39)
[2018-05-24 11:53] VITALS: BP 142/56
[2018-05-24] MEDS ORDERED: PROPOFOL 200MG/20ML VIAL IV ONE (14:37)
[2018-05-24 16:22] VITALS: BP 131/40
[2018-05-24 20:00] VITALS: BP 151/64
[2018-05-25] VITALS: BP 130/55
[2018-05-25] MEDS: METOCLOPRAMIDE HCL 10MG/2ML VIAL IV SCH ×4 (00:06→17:49)
[2018-05-25] MEDS: DEXT 5%/0.45% NACL KCL 20MEQ/L 1,000 ML IV SCH ×2 (00:08→20:35)
[2018-05-25] MEDS: MEROPENEM 1,000 MG in SODIUM CHLORIDE 0.9% 100 ML IV SCH ×2 (01:28→14:35)
[2018-05-25] MEDS: IPRATROPIUM/ALBUTEROL 0.5-3(2.5)MG/3ML NEB HHN SCH ×4 (03:28→20:07)
[2018-05-25 04:02] VITALS: BP 136/59
[2018-05-25] MEDS: INSULIN LISPRO 100 UNITS/ML SUBCUT SCH ×4 (07:50→20:08)
[2018-05-25 08:00] VITALS: BP 99/57
[2018-05-25 08:06] LABS: BASOPHILS % 0.2 % (0.0-2.0); EOSINOPHILS % 1.2 % (0.0-5.0); HEMATOCRIT. 28.8 % (36.0-48.0); HEMOGLOBIN. 9.7 g/dL (12.0-16.0); LYMPHOCYTES % 11.9 % (20.0-50.0); MEAN CORPUSCULAR HEMOGLOBIN 29.2 pg (28.0-32.0); MEAN CORPUSCULAR VOLUME 86.7 fL (81.0-99.0); MEAN PLATELET VOLUME 8.3 fl (7.4-10.4); MONOCYTES % 7.5 % (2.0-8.0); NEUTROPHILS % 79.2 % (40.0-76.0); PLATELET 410 x1000/uL (130-400); RED BLOOD CELL COUNT 3.32 mill/uL (4.2-5.4); RED CELL DISTRIBUTION WIDTH 14.2 % (11.6-14.6)
[2018-05-25 09:28] LABS: CHLORIDE 97 mEq/L (98-107)
[2018-05-25] MEDS: SIMETHICONE 80MG TABLET CHEW PO SCH ×4 (09:35→20:24)
[2018-05-25] MEDS: PANTOPRAZOLE SODIUM 40 MG/VIAL IV SCH ×2 (09:36→17:49)
[2018-05-25] MEDS: AMLODIPINE 10MG TABLET PO SCH (09:36)
[2018-05-25] MEDS: DOCUSATE SODIUM 250MG CAPSULE PO SCH (09:36)
[2018-05-25] MEDS: FUROSEMIDE 40MG/4ML VIAL IVP SCH (09:36)
[2018-05-25 12:00] VITALS: BP 127/48
[2018-05-25] MEDS: BLOOD SUGAR DIAGNOSTIC STRIP TEST SCH ×3 (12:37→20:08)
[2018-05-25] MEDS ORDERED: POTASSIUM CHLORIDE 20MEQ TABLET SR PO NR (13:00)
[2018-05-25] MEDS ORDERED: NA PHOS,M-B/NA PHOS,DI-BA ENEMA 118ML PR NR (14:30)
[2018-05-25] MEDS ORDERED: SORBITOL 70% SOLN 30ML PO NR (14:30)
[2018-05-25 16:00] VITALS: BP 131/50
[2018-05-25] MEDS: SUCRALFATE 1 G/10 ML UDC PO SCH ×2 (17:48→20:24)
[2018-05-25 20:00] VITALS: BP 141/55
[2018-05-26] VITALS: BP 139/52
[2018-05-26] MEDS: METOCLOPRAMIDE HCL 10MG/2ML VIAL IV SCH ×4 (00:30→18:59)
[2018-05-26] MEDS: MEROPENEM 1,000 MG in SODIUM CHLORIDE 0.9% 100 ML IV SCH ×2 (02:00→18:53)
[2018-05-26] MEDS: IPRATROPIUM/ALBUTEROL 0.5-3(2.5)MG/3ML NEB HHN SCH ×4 (02:33→20:40)
[2018-05-26 04:00] VITALS: BP 151/65
[2018-05-26] MEDS: BLOOD SUGAR DIAGNOSTIC STRIP TEST SCH ×4 (06:20→20:34)
[2018-05-26] MEDS: SUCRALFATE 1 G/10 ML UDC PO SCH ×4 (06:21→20:53)
[2018-05-26 07:29] LABS: BASOPHILS % 0.3 % (0.0-2.0); EOSINOPHILS % 0.7 % (0.0-5.0); HEMATOCRIT. 30.1 % (36.0-48.0); HEMOGLOBIN. 9.9 g/dL (12.0-16.0); LYMPHOCYTES % 11.6 % (20.0-50.0); MEAN CORPUSCULAR HEMOGLOBIN 28.3 pg (28.0-32.0); MEAN PLATELET VOLUME 8.3 fl (7.4-10.4); MONOCYTES % 7.8 % (2.0-8.0); NEUTROPHILS % 79.6 % (40.0-76.0); PLATELET 428 x1000/uL (130-400); RED CELL DISTRIBUTION WIDTH 14.2 % (11.6-14.6)
[2018-05-26 07:31] LABS: CHLORIDE 99 mEq/L (98-107)
[2018-05-26] MEDS: INSULIN LISPRO 100 UNITS/ML SUBCUT SCH ×4 (07:50→20:34)
[2018-05-26 08:00] VITALS: BP 154/57
[2018-05-26] MEDS: SIMETHICONE 80MG TABLET CHEW PO SCH ×4 (10:01→20:54)
[2018-05-26] MEDS: AMLODIPINE 10MG TABLET PO SCH (10:01)
[2018-05-26] MEDS: FUROSEMIDE 40MG/4ML VIAL IVP SCH (10:02)
[2018-05-26] MEDS: PANTOPRAZOLE SODIUM 40 MG/VIAL IV SCH ×3 (10:02→18:59)
[2018-05-26] MEDS: DOCUSATE SODIUM 250MG CAPSULE PO SCH (10:04)
[2018-05-26] MEDS ORDERED: METOCLOPRAMIDE HCL 10MG/2ML VIAL IV SCH ×3 (11:00→19:00)
[2018-05-26 12:00] VITALS: BP 148/60
[2018-05-26] MEDS ORDERED: BACTERIOSTATIC SODIUM CHLORIDE 0.9% 30ML VIAL IJ ONE (13:05)
[2018-05-26] MEDS ORDERED: SIMETHICONE 40 MG/0.6 ML 30ML ONE (13:05)
[2018-05-26 13:06] LABS: PARTIAL THROMBOPLASTIN TIME 27.5 sec (23.4-31.0); PROTHROMBIN TIME 9.9 sec (9.1-11.1)
[2018-05-26] MEDS ORDERED: FENTANYL CITRATE/PF 50MCG/ML 2ML VIAL ONE (16:44)
[2018-05-26] MEDS ORDERED: MIDAZOLAM HCL 5 MG/5 ML VIAL ONE (16:44)
[2018-05-26] MEDS ORDERED: FENTANYL CITRATE/PF 50MCG/ML 2ML VIAL IV ONE (16:56)
[2018-05-26] MEDS ORDERED: MIDAZOLAM HCL 5 MG/5 ML VIAL IV PRN (16:57)
[2018-05-26] MEDS: DEXT 5%/0.45% NACL KCL 20MEQ/L 1,000 ML IV SCH (20:00)
[2018-05-26 20:28] VITALS: BP 132/51
[2018-05-27] VITALS: BP 135/59
[2018-05-27] MEDS: METOCLOPRAMIDE HCL 10MG/2ML VIAL IV SCH ×3 (00:41→12:32)
[2018-05-27] MEDS: MEROPENEM 1,000 MG in SODIUM CHLORIDE 0.9% 100 ML IV SCH ×2 (01:41→14:13)
[2018-05-27] MEDS: IPRATROPIUM/ALBUTEROL 0.5-3(2.5)MG/3ML NEB HHN SCH ×2 (02:29→12:09)
[2018-05-27 04:00] VITALS: BP 141/61
[2018-05-27] MEDS: SUCRALFATE 1 G/10 ML UDC PO SCH ×2 (06:34→12:31)
[2018-05-27] MEDS: BLOOD SUGAR DIAGNOSTIC STRIP TEST SCH ×2 (06:34→12:11)
[2018-05-27] MEDS: INSULIN LISPRO 100 UNITS/ML SUBCUT SCH ×2 (07:20→12:31)
[2018-05-27 07:38] LABS: BASOPHILS % 0.3 % (0.0-2.0); HEMATOCRIT. 32.6 % (36.0-48.0); HEMOGLOBIN. 10.8 g/dL (12.0-16.0); MEAN CORPUSCULAR HEMOGLOBIN 28.6 pg (28.0-32.0); MEAN PLATELET VOLUME 8.4 fl (7.4-10.4); MONOCYTES % 6.8 % (2.0-8.0); NEUTROPHILS % 79.9 % (40.0-76.0); PLATELET 421 x1000/uL (130-400); RED BLOOD CELL COUNT 3.79 mill/uL (4.2-5.4); RED CELL DISTRIBUTION WIDTH 14.5 % (11.6-14.6)
[2018-05-27 07:56] VITALS: BP 140/62
[2018-05-27] MEDS: AMLODIPINE 10MG TABLET PO SCH (08:00)
[2018-05-27] MEDS: FUROSEMIDE 40MG/4ML VIAL IVP SCH (08:00)
[2018-05-27] MEDS: SIMETHICONE 80MG TABLET CHEW PO SCH ×2 (08:00→12:32)
[2018-05-27] MEDS: DOCUSATE SODIUM 250MG CAPSULE PO SCH (08:00)
[2018-05-27] MEDS: PANTOPRAZOLE SODIUM 40 MG/VIAL IV SCH (08:00)
[2018-05-27 08:52] LABS: CHLORIDE 98 mEq/L (98-107)
[2018-05-27 12:10] VITALS: BP 148/62
[2018-05-27] MEDS: DEXT 5%/0.45% NACL KCL 20MEQ/L 1,000 ML IV SCH (12:32)
[2018-05-27 14:35] VITALS: BP 148/62
[2018-05-27 16:37] VITALS: BP 160/56
== END 2018-05-27 16:45 | disposition home or self-care (01) | DRG 710 ==
LOC: ER 11:10 → EDBEDREQ 15:13 → 6WST 15:18 → ENRESERV 15:18
PROVIDERS: ADMIT Internal Medicine; ATTEND Internal Medicine
PROC: 0FT44ZZ Resection of Gallbladder, Percutaneous Endoscopic Approach (ICD-10-PCS; principal; 2018-05-15 10:30)
PROC: 0W9G30Z Drainage of Peritoneal Cavity with Drainage Device, Percutaneous Approach (ICD-10-PCS; 2018-05-20)
PROC: 0F788DZ Dilation of Cystic Duct with Intraluminal Device, Via Natural or Artificial Opening Endoscopic (ICD-10-PCS; 2018-05-24)
PROC: 0DB78ZX Excision of Stomach, Pylorus, Via Natural or Artificial Opening Endoscopic, Diagnostic (ICD-10-PCS; 2018-05-26)
DX: A41.9 Sepsis, unspecified organism (principal); J96.00 Acute respiratory failure, unspecified whether with hypoxia or hypercapnia; J81.1 Chronic pulmonary edema; K81.0 Acute cholecystitis; K22.6 Gastro-esophageal laceration-hemorrhage syndrome; K22.11 Ulcer of esophagus with bleeding; E87.8 Other disorders of electrolyte and fluid balance, not elsewhere classified; E87.1 Hypo-osmolality and hyponatremia; E11.9 Type 2 diabetes mellitus without complications; D64.9 Anemia, unspecified; E78.5 Hyperlipidemia, unspecified; I10 Essential (primary) hypertension; K21.9 Gastro-esophageal reflux disease without esophagitis; E78.00 Pure hypercholesterolemia, unspecified; K29.60 Other gastritis without bleeding; K29.80 Duodenitis without bleeding; K76.0 Fatty (change of) liver, not elsewhere classified; K82.8 Other specified diseases of gallbladder; R74.0 Nonspecific elevation of levels of transaminase and lactic acid dehydrogenase [LDH]; L02.211 Cutaneous abscess of abdominal wall; Z16.12 Extended spectrum beta lactamase (ESBL) resistance; B96.20 Unspecified Escherichia coli [E. coli] as the cause of diseases classified elsewhere; K59.09 Other constipation; Z79.899 Other long term (current) drug therapy
CPT/HCPCS: 36415; 36600; 71045; 74018; 74176; 74177; 74328; 77012; 78227; 80048; 80053; 80061; 80076; 81003; 82375; 82805; 82962; 83690; 83735; 83880; 84443; 84484; 85014; 85018; 85025; 85610; 85730; 87040; 87070; 87077; 87186; 87205; 88304; 88305; 88312; 88313; 92610; 93005; 93306; 94640; 96365; 96375; 97116; 97162; 97166; 99285; A9537; C1726; C1729; C1769; C1893; C2625; C9113; J0330; J0360; J0692; J1170; J1815; J1940; J1956; J2175; J2185; J2250; J2270; J2370; J2405; J2543; J2704; J2765; J3010; J3475; J3490; J7030; J7050; J7060; J7620; L8514; Q0162; Q9963; Q9967

== ENCOUNTER 2018-06-29 13:28 | Emergency (ER) | payer MEDICAID ==
[~2018-06-29] VITALS: Ht 162.6 cm; Wt 63.0 kg
[~2018-06-29 13:28] MED LIST changes: +ASPI-1158 MT; +ATOR10TA69 MT; +CARV6.2548 MT; +ISOS30TA6 MT; +LINA5TAB MT; +NEPVIT MT; -PEPJ2 IV
[2018-06-29] MEDS ORDERED: MORPHINE SULFATE 4 MG/ML CPJ (NOT FOR IM USE) IV STA (15:04)
[2018-06-29 16:36] LABS: CHLORIDE 100 mEq/L (98-107)
[2018-06-29 16:37] LABS: CLARITY URINE CLOUDY (CLEAR); COLOR URINE DARK YELLOW (YELLOW); KETONES URINE TRACE (NEGATIVE); LEUKOCYTE ESTERASE URINE 2+ (NEGATIVE); NITRITE URINE NEGATIVE (NEGATIVE); OCCULT BLOOD URINE NEGATIVE (NEGATIVE); PROTEIN URINE 1+ (NEGATIVE); SPECIFIC GRAVITY URINE 1.025 (1.005-1.030)
[2018-06-29 16:39] LABS: BASOPHILS % 0.2 % (0.0-2.0); EOSINOPHILS % 0.8 % (0.0-5.0); HEMATOCRIT. 35.1 % (36.0-48.0); HEMOGLOBIN. 11.7 g/dL (12.0-16.0); LYMPHOCYTES % 20.8 % (20.0-50.0); MEAN CORPUSCULAR VOLUME 86.8 fL (81.0-99.0); MEAN PLATELET VOLUME 9.4 fl (7.4-10.4); MONOCYTES % 9.3 % (2.0-8.0); NEUTROPHILS % 68.9 % (40.0-76.0); PLATELET 225 x1000/uL (130-400); RED BLOOD CELL COUNT 4.04 mill/uL (4.2-5.4); RED CELL DISTRIBUTION WIDTH 13.5 % (11.6-14.6)
[2018-06-29] MEDS ORDERED: IOHEXOL-300 100 ML BOTTLE ONE (18:13)
[2018-06-29 18:44] VITALS: BP 150/63
== END 2018-06-29 18:46 | disposition home or self-care (01) ==
LOC: ER 13:28
DX: G89.18 Other acute postprocedural pain (principal); K76.0 Fatty (change of) liver, not elsewhere classified; E11.9 Type 2 diabetes mellitus without complications; E78.00 Pure hypercholesterolemia, unspecified; I10 Essential (primary) hypertension; Z90.49 Acquired absence of other specified parts of digestive tract; Z79.82 Long term (current) use of aspirin
CPT/HCPCS: 36415; 74177; 80053; 81003; 83690; 85025; 96374; 99285; J2270; Q9967